=== PATIENT | female | born 2000 | race Caucasian/White ===

== ENCOUNTER 2019-09-13 23:46 | Emergency (ER) | payer OTHER ==
[~2019-09-13] VITALS: Ht 154.9 cm; Wt 59.0 kg
[2019-09-14] MEDS ORDERED: ALBUTEROL/IPRATROPIUM 3 ML NEB NEB STA (00:03)
[2019-09-14] MEDS ORDERED: ALBUTEROL/IPRATROPIUM 3 ML NEB ONE (00:11)
--- NOTE | 2019-09-14 00:53 | Diagnostic Imaging Report ---
EXAMINATION: CXR 2 VIEW - HOPD INDICATION: Cough, congestion COMPARISON: None FINDINGS: TUBES and LINES: None. LUNGS: Lungs are well inflated. Lungs are clear. There is no evidence of pneumonia or pulmonary edema. PLEURA: No pleural effusion or pneumothorax. HEART AND MEDIASTINUM: The cardiomediastinal silhouette is unremarkable. BONES AND SOFT TISSUES: No acute osseous lesion. Soft tissues are unremarkable. UPPER ABDOMEN: No free air under the diaphragm. There are cholecystectomy clips. IMPRESSION: No acute thoracic radiographic abnormality. Signed by: Alon Melton DO on 09/14/2019 12:49 AM
--- OUTSIDE RECORDS SUMMARY | 2019-09-19 12:18 | XMS REPORT ---
Author Author [facility] Address Unknown Phone Unavailable Care Team Providers Care Outside Sales Engineer Name Role Phone ANGELO CUTLER Unavailable Unavailable Problems This patient has no known problems. Allergies, Adverse Reactions, Alerts This patient has no known allergies or adverse reactions. Medications This patient has no known medications. Results Test Description Test Time Test Comments Text Results Atomic Results Result Comments CXR 2 VIEW - HOPD 2019-09-14 00:49:00 [place] [address] Patient Name: LICHA MACKENZIE MR #: [id number] : 2000 Age/Sex: 19/F Req #: [id number] Adm Physician: Ordered by: ANGELO CUTLER MD Report #: [id number] Location: [facility] Room/Bed: Procedure: [id number] HOPD/CXR 2 VIEW - HOPD Exam Date: 09/14/19 Exam Time: 0039 REPORT STATUS: Signed EXAMINATION: CXR 2 VIEW - HOPD INDICATION: Cough, congestion COMPARISON: None FINDINGS: TUBES and LINES: None. LUNGS: Lungs are well inflated. Lungs are clear. There is no evidence of pneumonia or pulmonary edema. PLEURA: No pleural effusion or pneumothorax. HEART AND MEDIASTINUM: The cardiomediastinal silhouette is unremarkable. BONES AND SOFT TISSUES: No acute osseous lesion. Soft tissues are unremarkable. UPPER ABDOMEN: No free air under the diaphragm. There are cholecystectomy clips. IMPRESSION: No acute thoracic radiographic abnormality. Signed by: Alon Melton DO on 09/14/2019 12:49 AM Dictated By: ALON MELTON DO Transcribed By: MARBELLA on 09/14/1950 COPY TO: ANGELO CUTLER MD
== END 2019-09-14 01:25 | disposition home or self-care (01) ==
LOC: FSED 23:46
DX: R05 Cough (principal); J11.1 Influenza due to unidentified influenza virus with other respiratory manifestations; J40 Bronchitis, not specified as acute or chronic
CPT/HCPCS: 71046; 99283